=== PATIENT | male | born 1990 | race Caucasian/White ===

== ENCOUNTER 2023-01-23 07:47 | Day surgery (SDC) | payer BC ==
[2023-01-20 12:25] LABS: ALANINE AMINOTRANSFERASE 28 U/L (12-78); ALBUMIN 4.5 G/DL (3.4-5.0); ALBUMIN/GLOBULIN RATIO 1.3 (1.1-1.5); ALKALINE PHOSPHATASE 102 IU/L (46-116); ANION GAP 8 (8-16); ASPARTATE AMINO TRANSFERASE 21 U/L (10-37); BILIRUBIN,TOTAL 0.4 MG/DL (0.1-1.0); BLOOD UREA NITROGEN 12 MG/DL (7-18); BUN/CREATININE RATIO 11.3 (10.0-20.0); CALCIUM 9.2 MG/DL (8.5-10.1); CHLORIDE 102 MMOL/L (99-107); CREATININE 1.06 MG/DL (0.60-1.10); GLUCOSE 86 MG/DL (70-104); POTASSIUM 4.1 MMOL/L (3.5-5.1); SODIUM 140 MMOL/L (135-145); TOTAL CARBON DIOXIDE 29.8 MMOL/L (24-32); TOTAL PROTEIN 8.1 G/DL (6.4-8.2); eGFR 80 ML/MIN
[2023-01-20 12:29] LABS: EOSINOPHILS # (AUTO) 0.1 X10'3 (0-0.9); LYMPHOCYTES # (AUTO) 2.2 X10'3 (1.1-4.8); MEAN PLATELET VOLUME 7.8 FL (7.4-10.4); NEUTROPHILS # (AUTO) 5.2 X10'3 (1.8-7.7)
[2023-01-20 12:31] LABS: BASOPHILS % (AUTO) 0.6 % (0-1); EOSINOPHILS % (AUTO) 1.2 % (0-6); HEMATOCRIT 46.7 % (42.0-52.0); HEMOGLOBIN 15.9 g/dl (14.0-17.9); LYMPHOCYTES % (AUTO) 27.1 % (21-51); MEAN CORPUSCULAR HEMOGLOBIN 29.9 PG (27.0-31.0); MEAN CORPUSCULAR HGB CONC 33.9 g/dL (33.0-36.5); MONOCYTES # (AUTO) 0.4 X10'3 (0-0.9); MONOCYTES % (AUTO) 5.5 % (2-12); NEUTROPHILS % (AUTO) 65.6 % (42-75); PLATELET COUNT 327 X10'3 (140-440); RED BLOOD COUNT 5.31 X10'6 (4.70-6.10); RED CELL DISTRIBUTION WIDTH 13.6 % (11.5-14.5)
[~2023-01-23] VITALS: Ht 180.3 cm; Wt 95.3 kg
[~2023-01-23 07:47] MED LIST: NO HOME MEDS; cefazolin 2gm/D5W 100mL 100 ML IV ONE; famotidine 20mg tablet PO ONE; ringers solution, lacted 1,000 ML IV SCH
[2023-01-23 08:50] VITALS: BP 130/67
[2023-01-23 08:51] VITALS: BP 130/67
[2023-01-23] MEDS ORDERED: LIDOcaine 1% W/epiNEPHrine 1:100,000 20ml vial ONE (09:06)
[2023-01-23] MEDS ORDERED: bacitracin 15gm ointment TP ONE (09:06)
[2023-01-23] MEDS ORDERED: sevoflurane 250ml liquid IH ONE (09:21)
[2023-01-23] MEDS ORDERED: fentaNYL/PF 50MCG/1 ML 2ML syringe ONE (09:26)
[2023-01-23] MEDS ORDERED: midazolam 1 mg/ML 2ml injection ONE (09:28)
[2023-01-23] MEDS ORDERED: meperidine/PF 25mg/ml syringe IV PRN ×3 (09:40)
[2023-01-23] MEDS ORDERED: morphine 4 MG/ML inj SYRINge IV PRN (09:40)
[2023-01-23] MEDS ORDERED: ringers solution, lacted 1,000 ML IV SCH (09:40)
[2023-01-23] MEDS ORDERED: proCHLORperazine 10 MG/2 ml inj IV PRN (09:40)
[2023-01-23] MEDS ORDERED: ondansetron/PF 4mg/2ml inj IV PRN (09:40)
[2023-01-23] MEDS ORDERED: hydrALAZINE 20mg/ml inj. IV PRN (09:40)
[2023-01-23] MEDS ORDERED: morphine 2 MG/ML inj. syringe IV PRN (09:40)
[2023-01-23] MEDS ORDERED: labetalol 20mg/4ml (5mg/ml) syringe IV PRN (09:40)
[2023-01-23] MEDS ORDERED: acetaminophen 1,000mg/100ml IV 100 ML IV PRN (09:40)
[2023-01-23] MEDS ORDERED: ondansetron/PF 4mg/2ml inj ONE (09:49)
[2023-01-23] MEDS ORDERED: propofol inj 20 ML IV ONE (09:49)
[2023-01-23] MEDS ORDERED: LIDOcaine 2% (20mg/ml) 5ml vial ONE (09:49)
[2023-01-23] MEDS ORDERED: dexamethasone sod phosphate 4mg/ml inj. ONE (09:49)
[2023-01-23 10:35] VITALS: BP 111/72
--- NOTE | 2023-01-23 10:35 | NUR ---
Received from OR via [facility], accompanied by Anesthesiologist and report given by THEODORA Anesthesiologist. PATIENT WAKING UP, NO S/S OF PAIN, V/S WNL, 20G TO LEFT HAND, LEFT EAR DRESSING C/D/I.
--- NOTE | 2023-01-23 10:35 | NUR ---
Received from OR via [facility], accompanied by Anesthesiologist and report given by THEODORA Anesthesiologist. PATIENT WAKING UP, NO S/S OF PAIN, V/S WNL, 20G TO LEFT HAND, LEFT EAR AND RIGHT SHOULDER DRESSING C/D/I. Addendum: 01/23/23 at 1057 by Tino Franklin RN Amended: Links added.
[2023-01-23 10:40] VITALS: BP 114/62
[2023-01-23 10:50] VITALS: BP 110/71
[2023-01-23 11:00] VITALS: BP 91/69
--- NOTE | 2023-01-23 11:05 | NUR ---
ALL DISCHARGE CRITERIA HAS BEEN MET. VSS, PAIN AT A TOLERABLE LEVEL, ABLE TO SAFELY AMBULATE AND TRANSFER SELF. IV TAKEN OUT WITHOUT ANY COMPLICATIONS. ALL DISCHARGE INSTRUCTIONS COVERED WITH PATIENT AND ALL QUESTIONS ANSWERED. PATIENT TAKEN OUT VIA WHEELCHAIR WITH ALL BELONGINGS TO PERSONAL VEHICLE WHERE FAMILY DROVE PATIENT HOME. Addendum: 01/23/23 at 1116 by Tino Franklin RN Amended: Links added.
== END 2023-01-23 11:05 | disposition home or self-care (01) ==
LOC: PRE-OP 07:47
PROVIDERS: ATTEND Specialist
DX: H93.8X2 Other specified disorders of left ear (principal); Z79.899 Other long term (current) drug therapy; Z98.818 Other dental procedure status; Z72.89 Other problems related to lifestyle
CPT/HCPCS: 15260; 36415; 69110; 80053; 82948; 85025; 93005; A6402; J0690; J1100; J2250; J2405; J2704; J3010; J3490; J7030; J7120; Z7506; Z7508; Z7512; A4215; A4618; A6449; A7000